=== PATIENT | male | born 1965 | race Caucasian/White ===

== ENCOUNTER → 2018-02-25 10:48 | Outpatient (CLI) | payer BC, SELFPAY ==
--- NOTE | 2018-02-25 10:52 | CA_ITS ---
PROCEDURE: 2-D M-mode and color Doppler study INDICATIONS FOR THE TEST: Chest pain + COPD Heart Murmur Tobacco Smoking+ Palpitations Fatigue Syncope Edema+ Hypertension+Diabetes Mellitus + Rheumatic Fever SOB+LANDIN+Obesity Hyperlipidemia+ Family History HD Additional History CP, ABN EKG PATIENT INFORMATION HEIGHT: 67 WEIGHT:223 GENDER: Male B/P:138/78 2-D/M-MODE INTERPRETATION: 2-D MEASUREMENTS OBSERVED VALUES IN CMS Right Ventricular Dimension (RVDd) 2.7 Interventricular Septum (Thickness)(IVsd) 1.3 Left Ventricular Internal Dimensions(LVIDd) 5.3 Left Ventricular Posterior Wall (Thickness)(LVPWd) 1.1 Aortic Root 3.3 Aortic Cusp Separation 1.9 Left Atrial Dimensions (LAD) 4.1 2D 1. Left atrium is mildly enlarged, left ventricle is normal size mild concentric left ventricular hypertrophy, visually estimated ejection fraction of 55% with no regional wall motion abnormality. 2. The right atrium and right ventricle are normal size and contractility. 3. The aortic valve is minimally thickened and fibrosed. 4. The mitral and tricuspid valve leaflets are grossly normal. 5. The pulmonic valve is poorly visualized. 6. No significant pericardial effusion noted. DOPPLER INTERROGATION: Doppler interrogation of the aortic, mitral and tricuspid valvular presence of mild mitral and tricuspid regurgitation, tricuspid regurgitation jet velocity is inadequate for calculation of the right ventricular systolic pressure, grade 1 diastolic dysfunction seen without tissue Doppler evidence of raised left atrial pressure. CONCLUSION: 1. Mildly enlarged left atrium, normal left ventricular size, mild concentric left ventricular hypertrophy, visually estimated ejection fraction 55% with no regional wall motion abnormality, grade 1 diastolic dysfunction seen without tissue Doppler evidence of raised left atrial pressure. 2. Mild mitral and tricuspid regurgitation 3. No significant pericardial effusion noted.
--- NOTE | 2018-02-25 10:52 | CI_ITS ---
Cerebrovascular Exam Indications: 785.9 Bruit. IMPRESSIONS 1. The bilateral vertebral arteries are patent with normal antegrade flow. 2. Study suggests less than 20% stenosis involving the right internal carotid artery and the left internal carotid artery. 3. Tortuous carotid arteries seen bilaterally. Carotid duplex study. Complete study and Doppler flow study including spectral analysis, color and flor scale imaging. Height: Height: 170.2cm. Height: 67in. Weight: Weight: 101.2kg. Weight: 222.5lb. Body mass index: BMI: 34.9kg/m^2. Body surface area: BSA: 2.23m^2. Location: Vascular laboratory. Patient status: Outpatient. Tables: Arterial flow: + +--------+--------+ Location V sys V ed + +--------+--------+ Right CCA - proximal 83.3cm/s 25.1cm/s + +--------+--------+ Right CCA - distal 72.3cm/s 29.1cm/s + +--------+--------+ Right ECA 112cm/s -------- + +--------+--------+ Right ICA - proximal 81.7cm/s 20.4cm/s + +--------+--------+ Right ICA - mid 69.9cm/s 23.6cm/s + +--------+--------+ Right ICA - distal 99cm/s 36.9cm/s + +--------+--------+ Right vertebral 61.3cm/s -------- + +--------+--------+ Left CCA - proximal 80.1cm/s 23.6cm/s + +--------+--------+ Left CCA - distal 76.2cm/s 22cm/s + +--------+--------+ Left ECA 87.2cm/s -------- + +--------+--------+ Left ICA - proximal 83.3cm/s 33cm/s + +--------+--------+ Left ICA - mid 80.1cm/s 28.3cm/s + +--------+--------+ Left ICA - distal 176cm/s 51.9cm/s + +--------+--------+ Left vertebral 53.4cm/s -------- + +--------+--------+ Velocity ratios: + + + + + + Right, V sys Right, V ed Left, V sys Left, V ed + + + + + + Max ICA/dist CCA 1.37 1.27 2.31 2.36 + + + + + + (Report amended ) Electronically signed by: Marcial Rodríguez [id number]
--- NOTE | 2018-02-25 12:10 | NM_ITS ---
History and Indications: Hypertension, diabetes, hyperlipidemia, chronic tobacco use, family history, chest pain, shortness of breath, palpitations, fatigue and abnormal EKG. Procedure: Agent received a 0.4 mg of intravenous Lexiscan, resting heart rate was 51 bpm resting blood pressure 129/77, with Lexiscan maximum heart rate achieved was 95 beats prominent which is less than 85% of the maximum predicted heart rate and a blood pressure was 154/77. With Lexiscan patient complained of shortness of breath Electrocardiogram: Resting electrocardiogram showed sinus bradycardia, with Lexiscan there is less than 1.[address] segment depression noted from the baseline EKG. The EKG portion of the Lexiscan Myoview is nondiagnostic. Cardiac stress and resting SPECT images: Cardiac stress and rest SPECT images were obtained using technetium 99 Myoview 10.1 mCi at rest and 30.9 mCi at stress gated SPECT further analysis of segmental wall motion and calculation of the ejection fraction also done. Cardiac stress and rest SPECT images show decreased tracer activity in the inferior and inferior apical wall, which improves on the resting images suggestive of reversible ischemia, computer derived ejection fraction is 49% with moderate inferior wall hypokinesis. Right ventricle is normal size and contractility. Conclusion: 1. The EKG portion of the Lexiscan Myoview is nondiagnostic. 2. Scintigraphic evidence of reversible ischemia involving the inferior and inferior apical wall, computer derived ejection fraction is 49% with segmental wall motion abnormality described above, right ventricle is normal size and contractility. 3. Abnormal Lexiscan Myoview study.
--- NOTE | 2018-02-25 12:23 | HMH.ITSHM ---
METFORMIN ICOSAPENT GLIMEPIRIDE GEMFIBROZIL BISOPROLOL ASA DAPAGLIFLOZIN
== END ==
PROVIDERS: PCP Nurse Practitioner; Visit Provider Internal Medicine
DX: R09.89 Other specified symptoms and signs involving the circulatory and respiratory systems (principal); I10 Essential (primary) hypertension; R06.09 Other forms of dyspnea; F17.209 Nicotine dependence, unspecified, with unspecified nicotine-induced disorders; I20.8 Other forms of angina pectoris; R94.31 Abnormal electrocardiogram [ECG] [EKG]
CPT/HCPCS: 78452; 93017; 93306; 93880; A9502; J2785

== ENCOUNTER → 2020-05-10 16:01 | Outpatient (CLI) | payer BC, SELFPAY ==
--- NOTE | 2020-05-10 16:09 | XR_ITS ---
PROCEDURE: XR SHOULDER LT MIN 2V CLINICAL INDICATION: ROTATOR CUFF SYNDROME OF LT SHOULDER Left shoulder pain COMPARISON: No exams were available for comparison FINDINGS: No fracture or dislocation. No lytic or blastic change. There is normal mineralization. Mild osteoarthritic change of the glenohumeral joint and acromioclavicular joint. A small calcific density is present along the greater tuberosity in may be due to calcific tendinitis. IMPRESSION: Degenerative changes, no acute finding Dictated by: Marcial Rodríguez MD 05/10/2020 16:22 Marcial Rodríguez MD in [place] 05/10/2020 16:22
== END ==
PROVIDERS: PCP Family Medicine; Visit Provider Family Medicine
DX: M75.102 Unspecified rotator cuff tear or rupture of left shoulder, not specified as traumatic (principal); M75.02 Adhesive capsulitis of left shoulder; M75.22 Bicipital tendinitis, left shoulder
CPT/HCPCS: 73030

== ENCOUNTER 2020-05-22 09:00 | Outpatient (RCR) | payer BC, SELFPAY ==
--- NOTE | 2020-05-16 08:50 | HMH.OTOPEV ---
OT Inpatient Evaluation Rehab OT Outpatient Eval Start: 05/16/20 08:39 Freq: Status: Active Protocol: Document 05/16/20 08:39 RMDILLAN (Rec: 05/16/20 08:50 RMDILLAN [id number]) Electronically Signed By Aaron Davis OT 05/16/20 08:39 Outpatient Therapy Subjective History Subjective History Pt is a 55 year old male who reports to therapy for initial evaluation to left shoulder. Pt explains his left shoulder began hurting him in summer and he does not recall a specific injury causing the pain. Since his pain began it has gradually become worse. He now has difficulty moving the joint and constant pain. Pt does demonstrate with significant decrease in AROM. Pt's symptoms appear to be consistent with adhesive capsulitis. Pt will continue to be seen twice a week in order to address all deficits at left shoulder. Chief Complaint Pain,Stiff,Weakness Symptom Type Ache,Throb,Sharp,Dull Symptoms Relieved By Nothing Symptoms Aggravated By Physical Activity,Lifting Prior Functional Limitations None Current Functional Limitations Reaching,Lifting,Housework, Sleeping,Recreation Activity Symptom Description Constant but Variable Level of pain today (0-10) 2 Pain scale - at its best (0-10) 2 Pain scale - at its worst (0-10) 10 Shoulder/Elbow Eval Shoulder Objective Measurements Shoulder ROM Left Shoulder Abduction Active Range of 65 degrees Motion (degrees) Shoulder Abduction Passive Range of 90 degrees Motion (degrees) Shoulder Flexion Active Range of Motion 95 degrees (degrees) Query Text: Shoulder Flexion Passive Range of Motion 110 degrees (degrees) Shoulder External Rotation Active Range 50 degrees of Motion (degrees) Shoulder External Rotation Passive Range 60 degrees of Motion (degrees) Shoulder Internal Rotation Active Range 50 degrees of Motion (degrees) Shoulder Internal Rotation Passive Range 60 degrees of Motion (degrees) pain with active ROM shoulder exam left standard pain with passive ROM shoulder exam left standard decreased ROM shoulder exam standard left
== END 2020-05-22 09:05 | disposition home or self-care (01) ==
LOC: OT 09:00
PROVIDERS: PCP Family Medicine; Visit Provider Family Medicine
DX: M75.102 Unspecified rotator cuff tear or rupture of left shoulder, not specified as traumatic (principal); M75.02 Adhesive capsulitis of left shoulder; M75.22 Bicipital tendinitis, left shoulder
CPT/HCPCS: 97110; 97140; 97166

== ENCOUNTER → 2020-06-27 13:41 | Outpatient (CLI) | payer BC, OTHER, SELFPAY ==
--- NOTE | 2020-06-27 13:48 | XR_ITS ---
PROCEDURE: XR SHOULDER LT MIN 2V CLINICAL INDICATION: left shoulder pain COMPARISON: CR XR SHOULDER LT MIN 2V from 05/10/2020 FINDINGS: No fracture or dislocation. No lytic or blastic change. There is normal mineralization. There are mild osteoarthritic changes of the left glenohumeral joint. Minimal calcification noted superior to the greater tuberosity consistent with calcific tendinitis. Small bone island suspected in the proximal humeral shaft. Other findings:Old fracture left 2nd rib anteriorly IMPRESSION: Mild osteoarthritis of the glenohumeral joint with calcific tendinitis Dictated by: Marcial Rodríguez MD 06/27/2020 14:55 Marcial Rodríguez MD in [place] 06/27/2020 14:55
== END ==
PROVIDERS: PCP Family Medicine; Visit Provider Orthopaedic Surgery
DX: M25.512 Pain in left shoulder (principal)
CPT/HCPCS: 73030

== ENCOUNTER → 2020-06-29 09:39 | Outpatient (POV) | payer BC, OTHER, SELFPAY | PROVIDERS: Visit Provider Audiologist | DX: Z00.00 Encounter for general adult medical examination without abnormal findings (principal) ==

== ENCOUNTER → 2020-07-07 12:58 | Outpatient (CLI) | payer BC, OTHER, SELFPAY ==
--- NOTE | 2020-07-07 12:58 | MR_ITS ---
PROCEDURE: MR SHOULDER LT WO CON CLINICAL INDICATION: evaluate for rotator cuff tear EVALUATE FOR ROTATOR CUFF TEAR. PT C/O LEFT SHOULDER PAIN AND LIMITED ROM WITH NO KNOWN INJURY OR TRAUMA. PRIOR LEFT SHOULDER X-RAYS 06/27/2020 COMPARISON: CR XR SHOULDER LT MIN 2V from 06/27/2020 TECHNIQUE: Routine multiplanar multi echo sequences are performed without gadolinium enhancement. FINDINGS: Acromioclavicular hypertrophy is present with acromioclavicular arthropathy and subacromial stenosis. The subacromial space anteriorly is approximately 5 mm. There is a focal area of increased T2 signal involving the deep layer of the supraspinatus tendon distally consistent with a partial tear. A complete tear with muscle and tendinous retraction is not present. The infraspinatus tendon, subscapularis, and teres minor tendons are intact. There is a small shoulder joint effusion. No evidence of labral tear. The bicipital tendon is in place. There are mild osteoarthritic changes of the glenohumeral joint. IMPRESSION: Acromioclavicular arthropathy with subacromial stenosis which may result in impingement symptomatology. Partial tear of the supraspinatus tendon. Mild osteoarthritic changes with small shoulder joint effusion Dictated by: Marcial Rodríguez MD 07/09/2020 11:12 Marcial Rodríguez MD in [place] 07/09/2020 11:12
== END ==
PROVIDERS: PCP Family Medicine; Visit Provider Orthopaedic Surgery
DX: M25.512 Pain in left shoulder (principal); G89.29 Other chronic pain
CPT/HCPCS: 73221

== ENCOUNTER 2023-12-24 12:35 | Emergency (ER) | payer SELFPAY ==
[2023-12-24 12:40] VITALS: BP 144/92; PULSE 86; RESP 20; TEMP 36.4; O2SAT 96; BMI 31.3
--- NOTE | 2023-12-24 12:51 | ED_ITS ---
Discharge Plan Disposition Patient Disposition: Home, Self-Care Condition: Good Prescriptions Prescriptions: No Action meloxicam 15 mg tablet 15 mg PO atorvastatin 10 mg tablet 10 mg PO Patient Comments: TAKE 1 TABLET BY MOUTH ONCE DAILY FOR 90 DAYS sildenafil 50 mg tablet 50 mg PO Patient Comments: TAKE 1 TABLET BY MOUTH ONCE DAILY NEEDED verapamil 120 mg tablet extended release 120 mg PO metformin 1,000 mg tablet 1,000 mg PO BID dapagliflozin-saxagliptin 10-5 mg tablet 1 tab PO DAILY losartan 50 mg tablet 50 mg PO DAILY Qty: 30 2RF cetirizine [Zyrtec] 10 mg tablet 10 mg PO DAILY PRN (Reason: sinus symptoms) 30 Days Qty: 30 2RF Toujeo SoloStar U-300 Insulin 300 unit/mL (1.5 mL) insulin pen 30 unit SQ DAILY ibuprofen 600 MG tablet 600 mg PO Q8H PRN (Reason: Moderate Pain) Qty: 21 0RF Referrals Follow up/Referrals: Jodi Kelly APRN [Primary Care Provider] - See instructions Activity Restrictions/Add. Instructions Additional Instructions/Restrictions: Go straight to [facility] as discussed Further care per [facility] Clinical Impressions Clinical Impression: Eye problems Instructions Patient Instructions: DI for Eye Pain Print Language Print Language: Danish Discharge ED Provider: Ivonne Barone [facility] General Stated complaint: object in left eye Mode of Arrival: Ambulatory Source of Information: Patient Limitations: No Limitations Time Seen by Provider: 12/24/23 12:51 Description of Symptoms (Recalled from Triage Doc. by RN): PATIENT STATES HE WAS MOWING LAST FRIDAY AND THINKS HE MAY HAVE GOTTEN SOMETHING IN HIS LEFT EYE. HEENT Symptoms (Recalled from RN notes): Yes Resp Symptoms (Recalled from RN notes): No Skin Symptoms (Recalled from RN notes): No MS Symptoms (Recalled from RN notes): No Functional Status (Recalled from RN notes): WNL History of Present Illness Provider Complaint: Patient states that he was mowing last week and thinks he got something in his left eye States that he rubbed his eye and it started hurting and then it got a little better States he thinks there is something still in there feels it in the upper corner under his eyelid and eye is sore and tender Denies vision difficulty Denies vision changes Related Data Home Medications ?Medication ?Instructions ?Recorded ?Confirmed dapagliflozin 10 mg-saxagliptin 5 1 tab PO DAILY 02/11/18 08/01/20 mg tablet metformin 1,000 mg tablet 1,000 mg PO BID 02/11/18 08/01/20 atorvastatin 10 mg tablet 10 mg PO 05/22/20 08/01/20 meloxicam 15 mg tablet 15 mg PO 05/22/20 08/01/20 sildenafil 50 mg tablet 50 mg PO 05/22/20 08/01/20 verapamil 120 mg tablet,extended 120 mg PO 05/22/20 08/01/20 release insulin glargine U-300 conc 300 30 unit SQ DAILY 06/27/20 08/01/20 unit/mL (1.5 mL) subcutaneous pen (Toujeo SoloStar U-300 Insulin) Previous Rx's ?Medication ?Instructions ?Recorded losartan 50 mg tablet 50 mg PO DAILY #30 tabs 03/06/18 ibuprofen 600 mg tablet 600 mg PO Q8H PRN Moderate Pain 03/31/18 #21 tabs cetirizine 10 mg tablet (Zyrtec) 10 mg PO DAILY PRN sinus symptoms 06/15/20 30 days #30 tabs Allergies Allergy/AdvReac Type Severity Reaction Status Date / Time No Known Allergies Allergy Verified 08/01/20 09:25 Worker's Comp Is this a Worker's Comp case?: No [facility] Disclaimer: The information contained in this section may have been updated after the patient was seen, as this information can be updated by other users. Medical History (Updated 12/24/23 @ 12:54 by Ivonne Barone APRN) Diabetes mellitus, type 2 Surgical History (Updated 12/24/23 @ 12:49 by Leah Gonzalez RN) History of cholecystectomy Social History Smoking Status: Current every day smoker tobacco type: cigarettes packs per day: 1 alcohol intake: never substance use type: denies use current occupational status: employed Travel in the last 8 weeks: None household members: significant other housing: house caffeine: Yes ROS Obtained: Yes All systems reviewed & no additional complaints except as documented and Yes Systems reviewed as appropriate & no additional complaints except as documented Constitutional Constitutional: Reports system reviewed and no additional complaints, except as documented and Reports as per HPI Eyes Eyes: Reports system reviewed and no additional complaints, except as documented, Reports as per HPI, Denies blind spots, Denies blurry vision, Denies diplopia, Reports irritation, Denies loss of vision, Denies sensitivity to light and Reports eye pain Cardiovascular Cardiovascular: Reports system reviewed and no additional complaints, except as documented and Reports as per HPI Respiratory Respiratory: Reports system reviewed and no additional complaints, except as documented and Reports as per HPI Neurologic Neurologic: Denies loss of vision Physical Exam General General appearance: alert and in no apparent distress Eye Eye exam: Present other (redness, irritation and pain in left eye feels like FB under eyelid x 1 week no swelling ) Respiratory Respiratory exam: Present normal lung sounds bilaterally; Absent respiratory distress or wheezes Cardiovascular Cardiovascular exam: Present regular rate, normal rhythm and normal heart sounds Neurological Exam Neurological exam: Present alert, oriented X3 and normal gait Medical Decision Making Roberto Inquiry Pt receiving controlled substance: No Roberto was queried for this patient: No Vital Signs: 12/24/23 12:40 Temperature 97.6 F Temperature Source Oral Pulse Rate [Left Brachial] 86 Respiratory Rate 20 Blood Pressure [Left Arm] 144/92 H Blood Pressure Mean [Left Arm] 109 Blood Pressure Source [Left Arm] Automatic Cuff Blood Pressure Position [Left Arm] Sitting 02 Sat by Pulse Oximetry 96 Oxygen Delivery Method Room Air Medical Decision Narrative: Spoke with patient and he is a patient at [facility] Called and spoke with staff and they advised to send patient down to the clinic and they would do eye exam and if any FB in the eye they would remove it there discussed with patient and he agreed will go straight to [facility] from the [facility]
[2023-12-24 12:55] VITALS: BP 144/92; PULSE 86; RESP 20; TEMP 36.4; O2SAT 96
== END 2023-12-24 12:57 | disposition home or self-care (01) ==
PROVIDERS: Emergency Provider Nurse Practitioner; PCP Nurse Practitioner
DX: H53.142 Visual discomfort, left eye (principal)
CPT/HCPCS: 99203; 99212; G0463

== ENCOUNTER 2024-05-11 11:33 | Emergency (ER) | payer SELFPAY ==
[2024-05-11 11:45] VITALS: BP 155/95; PULSE 102; RESP 24; TEMP 36.7; O2SAT 95; BMI 31.6
--- NOTE | 2024-05-11 11:45 | EXP.UTC ---
Discharge Plan Disposition Patient Disposition: Home, Self-Care Condition: Good Prescriptions Prescriptions: New benzonatate 100 mg capsule 100 mg PO TIDP PRN (Reason: Cough) Qty: 30 0RF methylprednisolone 4 mg Tablets,Dose Pack 4 mg PO DIRECTED 6 Days Qty: 21 0RF Rx Instructions: Take 1 pack as directed for 6 days amoxicillin-pot clavulanate 875-125 mg Tablet 1 tab PO Q12H Qty: 20 0RF Referrals Follow up/Referrals: Provider,Referral, MD [Primary Care Provider] - See instructions Activity Restrictions/Add. Instructions Additional Instructions/Restrictions: Drink plenty of fluids. Take tylenol or ibuprofen for pain or fever. Take the medications as directed. Follow up with your regular doctor. GO TO THE ER FOR ANY WORSENING SYMPTOMS Clinical Impressions Clinical Impression: Acute bronchitis, Sinusitis Instructions Patient Instructions: Sinusitis, DI for Sinusitis Print Language Print Language: Kyrgyz Discharge ED Provider: Shalom Santacruz [facility] General Stated complaint: chest/head congestion Time Seen by Provider: 05/11/24 11:45 Related Data Previous Rx's ?Medication ?Instructions ?Recorded amoxicillin 875 mg-potassium 1 tab PO Q12H #20 tabs 05/11/24 clavulanate 125 mg tablet benzonatate 100 mg capsule 100 mg PO TIDP PRN Cough #30 caps 05/11/24 methylprednisolone 4 mg tablets in 4 mg PO DIRECTED 6 days #21 tabs 05/11/24 a dose pack Allergies Allergy/AdvReac Type Severity Reaction Status Date / Time No Known Allergies Allergy Verified 08/01/20 09:25 [facility] Disclaimer: The information contained in this section may have been updated after the patient was seen, as this information can be updated by other users. Medical History Diabetes mellitus, type 2 Surgical History History of cholecystectomy Social History Smoking Status: Current every day smoker tobacco type: cigarettes packs per day: 1 alcohol intake: never substance use type: denies use current occupational status: employed Travel in the last 8 weeks: None household members: significant other housing: house caffeine: Yes ROS Obtained: Yes All systems reviewed & no additional complaints except as documented Constitutional Constitutional: Reports chills and Reports fever(s) Eyes Eyes: Denies eye discharge ENT Ears, Nose, Mouth, and Throat: Reports as per HPI Cardiovascular Cardiovascular: Denies chest pain Respiratory Respiratory: Denies chest congestion and Reports cough Gastrointestinal Gastrointestingal: Reports nausea; Denies abdominal pain, constipation, cramping, diarrhea or vomiting Musculoskeletal Musculoskeletal: Denies arthralgias Integumentary/Breasts Skin/Breast: Denies rash Neurologic Neurologic: Denies paresthesias Physical Exam General General appearance: alert and in no apparent distress Eye Eye exam: Present normal appearance, PERRL and EOMI ENT ENT exam: Present mucous membranes moist and normal external ear exam Expanded ENT Exam External ear exam: Present normal external inspection TM/Canal exam: Bilateral TM: erythema and bulging Nose exam: Absent sinus tenderness Nasal speculum exam: Bilateral: normal Mouth exam: Present normal external inspection; Absent drooling Teeth exam: Present normal inspection Throat exam: Present tonsillar erythema and tonsillomegaly Neck Neck exam: Present normal inspection, full ROM and trachea midline; Absent tenderness, lymphadenopathy or thyromegaly Chest Chest inspection: Present normal inspection and symmetric chest wall rise; Absent tenderness or rash Respiratory Respiratory exam: Present normal lung sounds bilaterally; Absent respiratory distress, wheezes, stridor or accessory muscle use Cardiovascular Cardiovascular exam: Present regular rate, normal rhythm and normal heart sounds Abdominal Exam Abdominal exam: Present soft; Absent distention, tenderness, guarding, rebound or rigidity Extremities Exam Extremities exam: Present normal inspection, full ROM and normal capillary refill; Absent tenderness or calf tenderness Back Exam Back exam: Present normal inspection and full ROM; Absent tenderness Neurological Exam Neurological exam: Present alert and oriented X3 Psychiatric Psychiatric exam: Present normal affect and normal mood Skin Skin exam: Present warm, dry, intact and normal color Lymphatic Lymphatic Findings: no adenopathy Medical Decision Making Medical Records Medical records reviewed: No I reviewed the patient's medical records. Screening: Per USPSTF and CDC recommendations, given the prevalence of disease in our region, it is our hospital?s policy to screen for HIV and viral Hepatitis for all patients aged 18 and over and those with ongoing risk factors. Roberto Inquiry Pt receiving controlled substance: No Lab Data Lab results reviewed: Yes I reviewed the patient's lab results.
[2024-05-11 12:29] LABS: UTC Influenza A Antigen Negative (Negative); UTC Influenza B Antigen Negative (Negative)
[2024-05-11 12:50] VITALS: BP 155/95; PULSE 102; RESP 24; TEMP 36.7; O2SAT 95
== END 2024-05-11 12:53 | disposition home or self-care (01) ==
PROVIDERS: Emergency Provider Nurse Practitioner Family
DX: J20.9 Acute bronchitis, unspecified (principal); J01.90 Acute sinusitis, unspecified
CPT/HCPCS: 87804; 99213; G0381